=== PATIENT | male | born 1995 | race Hispanic/Latino ===

== ENCOUNTER 2016-05-21 19:20 | Emergency (ER) | payer OTHER ==
[~2016-05-21] VITALS: Ht 172.7 cm; Wt 61.2 kg
[~2016-05-21 19:20] MED LIST: IBUPROFEN600 M1 PO
--- NOTE | 2016-05-21 19:56 | ED ANKLE/FOOT INJURY COMPLAINT ---
History of Present Illness General Chief Complaint: Foot or Ankle Injury Stated Complaint: PT HURT HIS LFT ANKLE PLAYING BASEKET BALL Source: patient Exam Limitations: no limitations Vital Signs & Intake/Output Vital Signs & Intake/Output Vital Signs Date Time Temp Pulse Resp B/P Pulse O2 O2 Flow FiO2 Ox Delivery Rate 05/21 1925 97.9 82 18 115/69 98 Room Air Allergies Coded Allergies: NO KNOWN ALLERGIES (10/19/10) Reconcile Medications Ibuprofen 600 MG TABLET 1 TAB PO Q6PRN PRN pain with food Triage Note: RECEIVED 20 YO MALE C/O TWISTED LEFT ANKLE PLAYING BASKETBALL ABOUT ONE HOUR [employer]OR [employer]. PT REPORTS HE IS UNABLE TO WEIGHT BEAR. Triage Nurses Notes Reviewed? yes Occurred: just prior to arrival Duration: hour(s): (2) Timing: no prior history Severity: moderate Pain/Injury Location: Left: Ankle. Method of Injury: twisted Modifying Factors: Improves With: immobilization. Worsens With: pain medication. HPI: Patient is a 20-year-old male presenting to the emergency department with chief complaint of left ankle pain after he rolled it while playing basketball just prior to arrival. Pain is achy and throbbing worse with any range of motion or palpation. Worse with ambulation as well denies taking anything for pain prior to arrival. He was given Tylenol at triage was seems to help. Denies numbness or tingling. Denies any other injury. Past History Travel History Traveled to [place] past 21 day No Medical History Any Pertinent Medical History? see below for history Neurological: NONE EENT: NONE Cardiovascular: NONE Respiratory: NONE Gastrointestinal: NONE Hepatic: NONE Renal: NONE Musculoskeletal: NONE Psychiatric: NONE Endocrine: NONE Blood Disorders: NONE Cancer(s): NONE Surgical History Surgical History: non-contributory Psychosocial History What is your primary language Estonian Tobacco Use: Never used Family History Hx Contributory? No Review of Systems Review of Systems Constitutional: Reports: no symptoms. Comments Review of systems: See HPI, All other systems negative. Constitutional, no chills fever or weight loss HEENT: No visual changes no sore throat no congestion Cardiovascular: No chest pain ,palpitation Skin, no jaundice no rashes Respiratory: No dyspnea cough GI: No nausea no vomiting Muscle skeletal: no back pain, no neck pain, Neurologic: No numbness Immunology: No splenectomy or history of AIDS Physical Exam Physical Exam General Appearance: well developed/nourished, no apparent distress, alert, awake , comfortable Leg/Knee/Thigh Left: normal range of motion, normal inspection Comments: Well-developed well-nourished no apparent distress. HEENT: Atraumatic, extraocular motion intact Neck: Supple, no lymphadenopathy Back: Nontender Respiratory: No respiratory distress Extremities: left Ankle with moderate tenderness laterally over the lateral ligaments. No bony tenderness. mild medial tenderness. Range of motion is near full but somewhat limited due to pain. No instability is noted. Skin is intact, mild swelling and ecchymosis laterally. The foot is neurovascularly intact with sensation and motor grossly intact. There is no foot tenderness or fifth metatarsal tenderness. Able to move all toes. Capillary refills intact in lower extremity on the left. Pedal pulses are intact. Neuro: Alert and oriented x3 Psych: Mood affect normal, normal memory normal judgment. Progress Differential Diagnosis: fracture, dislocation, sprain, contusion Plan of Care: Orders Procedure Date/time Status Durable Medical Equipment 05/22 2051 Active Diagnostic Imaging: Viewed by Me: Radiology Read. Discussed w/RAD: Radiology Read. Radiology Impression: PATIENT: JOSE AL PRESENT AGE: 20 PATIENT ACCOUNT NO: [id number] : 96 LOCATION: [facility] ORDERING PHYSICIAN: LUMA SAUNDERS SERVICE DATE: 05/21/16 EXAM TYPE: RAD - XRY-ANKLE 3 OR MORE VIEWS L 3 VIEWS OF THE LEFT ANKLE CLINICAL INFORMATION: Left ankle injury playing basketball. COMPARISON: Ankle radiographs from 07/04/2013. TECHNIQUE: AP, lateral, and mortise views of the left ankle. FINDINGS: The bony articulations are maintained. Ankle mortise is intact. There is a new small 2 mm radiodensity located dorsal to the talus on the lateral view that is not well-seen on the frontal view. I cannot exclude a very small avulsion fracture or radiopaque foreign body. No additional evidence of fracture. There is mild soft tissue swelling overlying the lateral malleolus. IMPRESSION: There is a new small 2 mm radiodensity located dorsal to the talus on the lateral view that is not well-seen on the frontal view. I cannot exclude a very small avulsion fracture or radiopaque foreign body. No additional evidence of fracture. Mild soft tissue swelling overlying the medial malleolus. DICTATED BY: NICKY ROMERO MD Departure Departure Time of Disposition: 2035 Disposition: HOME OR SELF CARE Condition: Stable Clinical Impression Primary Impression: Avulsion fracture Referrals: KOLBY LIMA,HILTON Cardenas (PCP/Family) NERY LIMA,ELISA Jordan Additional Instructions: Follow-up with orthopedics call to make appointment. Wear splint until follow- up. Use crutches for support. Rest ice and elevate. Take [id number] Tylenol and Motrin as directed. Return for worsening symptoms or concerns. Departure Forms: Customer Survey General Discharge Information Procedures Splinting Location: left ankle Manual Alignment Performed: No Splint: posterior walking Splint Applied By: splint applied by me Pre-Proc Neuro Vasc Exam: normal Post-Proc Neuro Vasc Exam: normal Progress: Tolerated procedure well.
--- NOTE | 2016-05-21 20:28 | RADIOLOGY REPORT ---
3 VIEWS OF THE LEFT ANKLE CLINICAL INFORMATION: Left ankle injury playing basketball. COMPARISON: Ankle radiographs from 07/04/2013. TECHNIQUE: AP, lateral, and mortise views of the left ankle. FINDINGS: The bony articulations are maintained. Ankle mortise is intact. There is a new small 2 mm radiodensity located dorsal to the talus on the lateral view that is not well-seen on the frontal view. I cannot exclude a very small avulsion fracture or radiopaque foreign body. No additional evidence of fracture. There is mild soft tissue swelling overlying the lateral malleolus. IMPRESSION: There is a new small 2 mm radiodensity located dorsal to the talus on the lateral view that is not well-seen on the frontal view. I cannot exclude a very small avulsion fracture or radiopaque foreign body. No additional evidence of fracture. Mild soft tissue swelling overlying the medial malleolus.
[2016-05-21 20:58] VITALS: BP 138/74
== END 2016-05-21 20:58 ==
LOC: ERH 19:20
DX: S92.152A Displaced avulsion fracture (chip fracture) of left talus, initial encounter for closed fracture (principal); X50.9XXA Other and unspecified overexertion or strenuous movements or postures, initial encounter; Y93.67 Activity, basketball; Y92.9 Unspecified place or not applicable
CPT/HCPCS: 73610-LT